=== PATIENT | male | born 1970 | race Caucasian/White ===

== ENCOUNTER 2023-06-20 19:29 | Emergency (ER) | payer OTHER, SELFPAY ==
[2023-06-20] VITALS (8 sets, daily range): BP systolic 127–146; BP diastolic 90–91; PULSE 63–91; RESP 16–21; TEMP 36.8; O2SAT 97–99
--- NOTE | 2023-06-20 19:51 | W.ED.GENAD ---
Discharge Plan Disposition Patient Disposition: Home Condition: Improving Discharge Details Clinical Impression: Esophageal foreign body Primary Care Provider: None,None ED Provider: Vanessa Funes Discharge Instructions Instructions: Esophageal Foreign Body (ED) Additional Instructions: Follow up with primary care provider in 3-5 days. Return to ED sooner if any worsening or concerns. Increase oral fluids. Referrals: [facility] [Outside] (Follow up with GI if this is a re-occurance) Medical Decision Making 52-year-old male presents to the ER with chief complaint of foreign body stuck in esophagus which occurred approximately at 5:00 while eating dinner. Patient reports that he was eating steak tips and feels like there is a piece lodged in his lower esophagus. He is unable to swallow his saliva. He is speaking in full sentences lungs are clear to auscultation bilaterally. Denies any shortness of breath or cough. No other associated symptoms. This has occurred prior but has been able to work itself out. Effervescent granules ordered we will attempt x2 if unsuccessful. Will consider soft tissue neck x-ray. 2022: RN at with efferevescent granules attempting dislodgment of FB. 2026: Patient reports he feels better after one dose of the granules. Will discharge to home. This text was generated using [employer] dictation system, please disregard any oddities of phrase or misspellings. HPI General Mode of arrival: ambulatory. Date/Time Provider Initiated Documentation: 06/20/23 19:39. Limitations to Documentation: no limitations. Information obtained by: patient, RN notes reviewed and old records reviewed. HPI Narrative: 52-year-old male presents to the ER with chief complaint of foreign body stuck in esophagus which occurred approximately at 5:00 while eating dinner. Patient reports that he was eating steak tips and feels like there is a piece lodged in his lower esophagus. He is unable to swallow his saliva. He is speaking in full sentences lungs are clear to auscultation bilaterally. Denies any shortness of breath or cough. No other associated symptoms. This has occurred prior but has been able to work itself out. Related Data Allergies Allergy/AdvReac Type Severity Reaction Status Date / Time No Known Allergies Allergy Unverified 06/20/23 19:38 General Stated Complaint: ThroatFB STEPH: 3 Review of Systems All systems reviewed & are unremarkable except as noted in HPI and below ENT Ears, Nose, Mouth, and Throat: Reports dysphagia Gastrointestinal Gastrointestinal: Reports as per HPI and Reports dysphagia PFSH All Active Problems (Updated 06/20/23 @ 20:31 by Vanessa Funes NP) Esophageal foreign body (Acute) Social History Smoking/Tobacco Use Status: Former Tobacco Use Quit Date: 09/16/02 Smoking risk assessment performed?: Yes Alcohol Intake: never Substance use type: does not use Housing: house Do you feel safe at home: Yes Do you feel safe in your relationship?: Yes Exam Narrative Exam Narrative: Constitutional: Alert and oriented x3. Appears stated age. Normal body habitus. Head: Normocephalic, no trauma. Eyes: Pupils PERRL, Red reflex noted, EOM's intact. Eyelids symmetrical without lesions, discharge, or swelling. ENT: Bilateral TM's WNL, External ear normal to inspection, no mastoid TTP, swelling, or erythema, Nasal turbinates WNL, no nasal discharge. Normal dentition, Posterior pharynx WNL, no exudate. Chest: RRR, Normal S1, S2, distal pulses intact. Resp: Lungs clear to auscultation bilaterally, no wheezes, rales, or rhonchi. Abdomen: Soft, non-distended, Normoactive bowel sounds all 4 quads. Musculoskeletal: Normal gait, 5/5 strength to all four extremities. Skin: No suspicious rashes or lesions. Capillary refill less than 2 sec. Neurologic: Cranial nerves II-XII intact. Alert and oriented x 3. Motor: No deficits noted. Sensory: Intact bilaterally all 4 extremities. Reflexes: DTR's intact bilaterally.. Hematologic/Lymphatic: No ecchymosis, no lymphadenopathy. Course Vital Signs Vital signs: Vital Signs Temperature 36.8 C 06/20/23 19:39 Pulse 91 H 06/20/23 19:39 Respiratory Rate 21 06/20/23 19:39 Blood Pressure 146/91 H 06/20/23 19:39 Pulse Oximetry 98 06/20/23 19:39 Temperature 36.8 C 06/20/23 19:39 Temperature Source Oral 06/20/23 19:39 Pulse 91 H 06/20/23 19:39 Respiratory Rate 21 06/20/23 19:39 Blood Pressure 146/91 H 06/20/23 19:39 Blood Pressure Position Sitting 06/20/23 19:39 Pulse Oximetry 98 06/20/23 19:39 Oxygen Delivery Method Room Air 06/20/23 19:39 Oxygen Flow Rate 0 06/20/23 19:39 Pain Level 1 06/20/23 19:39
[2023-06-20] MEDS: Simethicone/Sod Bicarb/Cit Ac, 4 gram PACKET 1 PACKET PO (20:20)
== END 2023-06-20 20:37 | disposition home or self-care (01) ==
LOC: ER 20:44
PROVIDERS: Emergency Provider Registered Nurse Emergency
DX: T18.108A Unspecified foreign body in esophagus causing other injury, initial encounter (principal)
CPT/HCPCS: 99281; 99282